=== PATIENT | female | born 1985 | race African-American/Black ===

== ENCOUNTER 2023-04-14 14:50 | Inpatient (IN) | payer BC, SELFPAY ==
[2023-04-14 17:25] LABS: Bilirubin Neg (Negative); Blood, Urine 10 (Negative); Clarity Clear (Clear); Glucose, Urine (Dipstick) >=1000 mg/dL (Negative); Ketone, Urine 50 mg/dL (Negative); Leukocyte 25 (Negative); Nitrite Negative (Negative); Protein, Urine (Dipstick) Negative (Neg-Trace); Specific Gravity, Urine 1.005 (1.005-1.030); Urobilinogen Normal mg/dL (Less than 2); pH, Urine 6.5 (5.0-9.0)
[2023-04-14 17:27] LABS: Pregnancy Test - Urine (BHCG) Negative (Negative); Pregu Control Background? CLEAR/WHITE (CLR/WHITE); Pregu Control Bar Appear? YES (CONTROL BAR); Specific Gravity 1.005 (1.002-1.036)
[2023-04-14 17:31] LABS: Bacteria/HPF Rare-Few HPF (None Seen); CAUTI Indications for Culture Dysuria,urgency,freq; RBC/HPF 0-3 HPF (0-3); Squamous Epithelial 0-3 HPF (0-3); WBC/HPF 0-3 HPF (0-3); Yeast-Budding Rare HPF (None Seen)
[2023-04-14 17:32] LABS: Urine Culture Reflex No No
[2023-04-14 17:38] LABS: Phosphorus 4.1 mg/dL (2.3-4.7)
[2023-04-14 17:41] LABS: #Monocytes 0.7 10x3/uL (0.0-1.1); #Neutrophils 3.2 10x3/uL (1.5-8.4); %Basophils 0.3 % (0.0-2.0); %Eosinophils 0.3 % (0.0-6.0); %Lymphocytes 33.8 % (18.0-47.0); %Neutrophils 53.3 % (40.0-75.0); Hematocrit 38.9 % (34.9-44.5); Hemoglobin 13.4 g/dL (12.0-15.5); Mean Corpuscular HGB CONC 34.4 g/dL (32.0-36.0); Mean Corpuscular Hemoglobin 28.3 pg (27.0-33.0); Mean Corpuscular Volume 82.2 fl (81.6-98.3); Mean Platelet Volume 11.5 fl (7.4-10.4); Platelet Count 332 10x3/uL (150-450); RBC Distribution Width 13.5 % (11.5-14.5); Red Blood Cell (RBC) Count 4.73 10x6/uL (3.90-5.03); White Blood Cell (WBC) Count 6.1 10x3/uL (3.5-10.5)
[2023-04-14 17:42] LABS: ALT (SGPT) 17 U/L (8-55); AST (SGOT) 15 U/L (5-34); Albumin 3.9 g/dL (3.5-5.0); Alkaline Phosphatase 262 U/L (40-110); Anion Gap 21 mmol/L (10-20); BUN (Urea Nitrogen) 8 mg/dL (7.0-18.7); Bilirubin, Total 0.2 mg/dL (0.2-1.2); Calc. Creatinine Clearance 0 mL/min (70-130); Calcium 9.1 mg/dL (7.8-10.44); Carbon Dioxide 17 mmol/L (22-29); Chloride 89 mmol/L (98-107); Estimated GFR 57; Globulin 3.8 g/dL (2.4-3.5); Lipase 24 U/L (8-78); Potassium 4.4 mmol/L (3.5-5.1); Protein, Total 7.7 g/dL (6.0-8.3); Sodium 123 mmol/L (136-145)
[2023-04-14 17:50] LABS: Glucose 845 mg/dL (70-105)
[2023-04-14] MEDS ORDERED: INSULIN REGULAR IN 0.9 % NACL 100 UNITS/100 ML BAG ONE (19:08)
[2023-04-14] MEDS ORDERED: NS 0.9% w/ 20 MEQ KCL 1,000 ML ONE (19:39)
[2023-04-14 19:53] LABS: Glucose 187 mg/dL (70-105)
[2023-04-14] MEDS ORDERED: NS 0.9% w/ 20 MEQ KCL 1,000 ML IV PRN ×2 (20:19)
[2023-04-14] MEDS ORDERED: Sodium Chloride 0.9% 1,000 ML IV PRN ×4 (20:19)
[2023-04-14] MEDS ORDERED: D5 1/2 NS w/20 mEq KCL 1,000 ML IV PRN (20:19)
[2023-04-14] MEDS ORDERED: Dextrose 50% Abboject 50 ML SYRINGE SLOW IVP PRN (20:19)
[2023-04-14] MEDS ORDERED: Dextrose 5 %-0.45 % NaCl 1,000 ML IV PRN (20:19)
[2023-04-14] MEDS ORDERED: Electrolyte Replacement Protocol 1 EACH IVPB PRN (20:19)
[2023-04-14] MEDS ORDERED: Acetaminophen 325 MG TAB PO PRN (20:22)
[2023-04-14 20:45] VITALS: BMI 38.5
[2023-04-14] MEDS ORDERED: INSULIN REGULAR IN 0.9 % NACL 100 UNITS in Premix 1 BAG IVPB SCH (21:00)
[2023-04-14] MEDS ORDERED: Magnesium 2 GM/50 ML(in water) 2 GM in Premix 1 BAG IVPB SCH (21:00)
[2023-04-14] MEDS ORDERED: FLU VACC QS2023-24(6MOS UP)/PF 60 MCG/0.5 ML SYRINGE IM ONE (21:15)
[2023-04-14 22:13] LABS: Anion Gap 19 mmol/L (10-20); BUN (Urea Nitrogen) 7 mg/dL (7.0-18.7); Calc. Creatinine Clearance 142 mL/min (70-130); Calcium 8.9 mg/dL (7.8-10.44); Carbon Dioxide 20 mmol/L (22-29); Chloride 102 mmol/L (98-107); Estimated GFR 86; Glucose 363 mg/dL (70-105); Sodium 137 mmol/L (136-145)
[2023-04-14 22:14] LABS: Actual Bicarbonate (HCO3v) 5.9 mEq/L (22-28); Analyzer IN Cardio CS ER; Base Excess -20.2 mEq/L (-2 - +2); Calcium, Ionized (venous) 0.33 mmol/L (1.16-1.32); Chloride (VBG) 136 mmol/L (98-106); Hematocrit-VBG 9 % (36.0-47.0); Hemoglobin (Hb) 3.2 g/dL (11.7-15.5); Potassium (VBG) 0.67 mmol/L (3.70-5.30); Puncture Site Other Site; RapidComm Collect By lab; Sodium 141 mmol/L (133-146); pH (venous) 7.221 (7.32-7.43)
[2023-04-15 03:58] LABS: #Eosinphils 0.1 10x3/uL (0.0-0.5); #Monocytes 0.8 10x3/uL (0.0-1.1); #Neutrophils 2.6 10x3/uL (1.5-8.4); %Basophils 0.3 % (0.0-2.0); %Eosinophils 0.9 % (0.0-6.0); %Lymphocytes 48.8 % (18.0-47.0); %Neutrophils 38.7 % (40.0-75.0); Hematocrit 35.9 % (34.9-44.5); Hemoglobin 12.3 g/dL (12.0-15.5); Mean Corpuscular HGB CONC 34.3 g/dL (32.0-36.0); Mean Corpuscular Hemoglobin 27.6 pg (27.0-33.0); Mean Corpuscular Volume 80.7 fl (81.6-98.3); Mean Platelet Volume 10.4 fl (7.4-10.4); Platelet Count 310 10x3/uL (150-450); RBC Distribution Width 13.4 % (11.5-14.5); Red Blood Cell (RBC) Count 4.45 10x6/uL (3.90-5.03); White Blood Cell (WBC) Count 6.8 10x3/uL (3.5-10.5)
[2023-04-15 04:33] LABS: Magnesium 1.9 mg/dL (1.6-2.6); Phosphorus 3.4 mg/dL (2.3-4.7)
[2023-04-15 04:46] LABS: Anion Gap 14 mmol/L (10-20); BUN (Urea Nitrogen) 5 mg/dL (7.0-18.7); Calc. Creatinine Clearance 155 mL/min (70-130); Calcium 8.6 mg/dL (7.8-10.44); Carbon Dioxide 22 mmol/L (22-29); Chloride 106 mmol/L (98-107); Estimated GFR 95; Glucose 216 mg/dL (70-105); Potassium 3.5 mmol/L (3.5-5.1); Sodium 138 mmol/L (136-145)
[2023-04-15] MEDS ORDERED: Magnesium 2 GM/50 ML(in water) 2 GM in Premix 1 BAG IVPB SCH (06:00)
[2023-04-15 07:22] LABS: Anion Gap 12 mmol/L (10-20); BUN (Urea Nitrogen) 4 mg/dL (7.0-18.7); Calc. Creatinine Clearance 176 mL/min (70-130); Calcium 8.4 mg/dL (7.8-10.44); Carbon Dioxide 20 mmol/L (22-29); Chloride 108 mmol/L (98-107); Estimated GFR 111; Glucose 174 mg/dL (70-105); Potassium 3.4 mmol/L (3.5-5.1); Sodium 137 mmol/L (136-145)
[2023-04-15] MEDS ORDERED: Dextrose 5% in Water 1,000 ML IV PRN (08:16)
[2023-04-15] MEDS ORDERED: Dextrose 50% Abboject 50 ML SYRINGE SLOW IVP PRN (08:16)
[2023-04-15] MEDS ORDERED: Glucagon 1 MG/ML KIT IM PRN (08:16)
[2023-04-15] MEDS ORDERED: HumaLOG 300 UNITS/3 ML VIAL SC PRN ×3 (08:16→08:19)
[2023-04-15] MEDS ORDERED: D5 1/2 NS w/20 mEq KCL 1,000 ML IV SCH (08:30)
[2023-04-15] MEDS: Insulin NPH Human Isophane 100 UNITS/ML (10 ML VIAL) SC SCH ×2 (08:43→08:54)
[2023-04-15] MEDS ORDERED: Insulin Regular 300 UNITS/3 ML VIAL SC PRN (09:36)
[2023-04-15] MEDS: 1/2 NS w/KCL 20 mEq 1,000 ML IV SCH ×2 (09:47→18:33)
[2023-04-15] MEDS ORDERED: Fluconazole 100 MG TAB PO SCH (10:00)
[2023-04-15] MEDS ORDERED: glipiZIDE 5 MG TAB PO SCH ×3 (10:00→18:01)
[2023-04-15 11:45] LABS: Bilirubin Neg (Negative); Blood, Urine 250 (Negative); Glucose, Urine (Dipstick) >=1000 mg/dL (Negative); Ketone, Urine 50 mg/dL (Negative); Leukocyte 500 (Negative); Nitrite Negative (Negative); Protein, Urine (Dipstick) Negative (Neg-Trace); Urobilinogen Normal mg/dL (Less than 2)
[2023-04-15 11:48] LABS: Clarity Hazy (Clear)
[2023-04-15 11:56] LABS: Amphetamine Not Detected (NotDetected); Barbiturates Screen Not Detected (NotDetected); Benzodiazepine Screen Not Detected (NotDetected); Cocaine Metabolite Screen Not Detected (NotDetected); Methadone Not Detected (NotDetected); Methamphetamine Not Detected (NotDetected); Opiate Screen Not Detected (NotDetected); Oxycodone Screen Not Detected (NotDetected); Phencyclidine (PCP) Not Detected (NotDetected); THC/Cannabinoid Screen Not Detected (NotDetected); Tricyclic Screen Not Detected (NotDetected)
[2023-04-15 12:01] LABS: Bacteria/HPF 2+ HPF (None Seen); Transitional Epithelial 0-3 HPF (None Seen)
[2023-04-15 12:05] LABS: Yeast-Budding Rare HPF (None Seen)
[2023-04-15 12:06] LABS: Yeast-Hyphae Rare HPF (None Seen)
[2023-04-15 16:58] LABS: Hemoglobin A1c Greater than 14.0 % (4.0-6.0)
[2023-04-15] MEDS ORDERED: metFORMIN 500 MG TAB PO SCH (18:00)
[2023-04-15] MEDS: Nitrofurantoin Monohyd/M-Cryst 100 MG CAP PO SCH (20:50)
[2023-04-15] MEDS ORDERED: MICONAZOLE 200 MG VAG SCH (21:00)
[2023-04-15] MEDS: Insulin Regular 300 UNITS/3 ML VIAL SC PRN (21:24)
[2023-04-15] MEDS: Clotrimazole 2% 3 Day Vag Cr 22.2 GM TUBE VAG SCH (21:25)
[2023-04-16] MEDS: 1/2 NS w/KCL 20 mEq 1,000 ML IV SCH ×3 (01:46→18:08)
[2023-04-16 06:33] LABS: Anion Gap 16 mmol/L (10-20); BUN (Urea Nitrogen) 8 mg/dL (7.0-18.7); Calc. Creatinine Clearance 163 mL/min (70-130); Calcium 8.7 mg/dL (7.8-10.44); Carbon Dioxide 21 mmol/L (22-29); Chloride 103 mmol/L (98-107); Estimated GFR 101; Glucose 334 mg/dL (70-105); Magnesium 1.8 mg/dL (1.6-2.6); Phosphorus 3.3 mg/dL (2.3-4.7); Potassium 4.1 mmol/L (3.5-5.1); Sodium 136 mmol/L (136-145)
[2023-04-16] MEDS ORDERED: glipiZIDE 5 MG TAB PO SCH (07:30)
[2023-04-16] MEDS: glipiZIDE 10 MG TAB PO SCH ×2 (07:59→16:20)
[2023-04-16] MEDS: Nitrofurantoin Monohyd/M-Cryst 100 MG CAP PO SCH ×2 (08:00→20:32)
[2023-04-16] MEDS: metFORMIN 500 MG TAB PO SCH ×2 (08:03→16:20)
[2023-04-16] MEDS ORDERED: Magnesium 2 GM/50 ML(in water) 2 GM in Premix 1 BAG IVPB SCH ×2 (09:00)
[2023-04-16] MEDS ORDERED: Lantus 1000 UNITS/10 ML VIAL SC SCH (10:00)
[2023-04-16] MEDS: Insulin Regular 300 UNITS/3 ML VIAL SC PRN ×2 (16:20→20:33)
[2023-04-16] MEDS: Clotrimazole 2% 3 Day Vag Cr 22.2 GM TUBE VAG SCH (20:33)
[2023-04-16] MEDS ORDERED: Multivit, Therapeutic 1 TAB PO SCH (21:00)
[2023-04-17] MEDS: Insulin Regular 300 UNITS/3 ML VIAL SC PRN (05:57)
[2023-04-17 06:19] LABS: Anion Gap 15 mmol/L (10-20); BUN (Urea Nitrogen) 6 mg/dL (7.0-18.7); Calc. Creatinine Clearance 163 mL/min (70-130); Calcium 8.6 mg/dL (7.8-10.44); Carbon Dioxide 21 mmol/L (22-29); Chloride 102 mmol/L (98-107); Estimated GFR 101; Glucose 332 mg/dL (70-105); Potassium 3.6 mmol/L (3.5-5.1); Sodium 134 mmol/L (136-145)
[2023-04-17] MEDS ORDERED: Lantus 1000 UNITS/10 ML VIAL SC SCH (09:00)
[2023-04-17] MEDS: Nitrofurantoin Monohyd/M-Cryst 100 MG CAP PO SCH (09:47)
[2023-04-17] MEDS: metFORMIN 500 MG TAB PO SCH (09:47)
[2023-04-17] MEDS: glipiZIDE 10 MG TAB PO SCH (09:48)
[2023-04-17] MEDS: 1/2 NS w/KCL 20 mEq 1,000 ML IV SCH (11:05)
[2023-04-17] MEDS ORDERED: Ondansetron ODT 4 MG TAB PO PRN (14:10)
[2023-04-17 14:41] VITALS: BP 132/88; TEMP 97.8
== END 2023-04-17 15:05 | disposition home or self-care (01) | DRG 638 ==
LOC: CSHERS 14:50 → CSHIMCU 19:22 → CSHTELE 04-15 12:35
PROVIDERS: ADMIT Family Medicine; ATTEND Internal Medicine
DX: E11.10 Type 2 diabetes mellitus with ketoacidosis without coma (principal); E87.1 Hypo-osmolality and hyponatremia; N17.9 Acute kidney failure, unspecified; E66.01 Morbid (severe) obesity due to excess calories; D57.3 Sickle-cell trait; E11.65 Type 2 diabetes mellitus with hyperglycemia; E83.42 Hypomagnesemia; E87.6 Hypokalemia; E86.0 Dehydration; Z98.890 Other specified postprocedural states; Z82.49 Family history of ischemic heart disease and other diseases of the circulatory system; Z83.3 Family history of diabetes mellitus; Z87.891 Personal history of nicotine dependence; Z90.49 Acquired absence of other specified parts of digestive tract
CPT/HCPCS: 36415; 36416; 80048; 80053; 80306; 81001; 81025; 82010; 82805; 83036; 83690; 83735; 84100; 85025; 90471; 90686; 93005; 93010; G0008; J1650; J1815; J3475; J3480; J7999; Q0162